=== PATIENT | male | born 2000 | race Caucasian/White ===

== ENCOUNTER 2023-04-03 21:33 | Emergency (ER) | payer SELFPAY ==
[2023-04-03 21:55] VITALS: BP 114/67; PULSE 82; RESP 16; TEMP 36.7; O2SAT 98; BMI 20.5
[2023-04-04] VITALS: PULSE 80; RESP 16; TEMP 36.1; O2SAT 98
--- NOTE | 2023-04-04 00:18 | ED_ITS ---
HPI - General Adult General Chief complaint: Skin/Abscess/Foreign Body Stated complaint: Almost passed out unpacking wound Time Seen by Provider: 04/04/23 00:15 Source: patient, family, RN notes reviewed and old records reviewed Mode of arrival: ambulatory Limitations: no limitations History of Present Illness HPI narrative: 23-year-old male who comes in today with near syncopal episode while changing the packing in his hand wound. Review of chart shows the patient had incision and drainage of a hand abscess on March 30. Patient was to remove the packing yesterday but became lightheaded when doing so and so waited till today, tried to do it again and became lightheaded so came to the emergency department. He is otherwise feeling well, he is on Bactrim Related Data Previous Rx's Medication Instructions Recorded oxycodone 5 mg tablet 5 mg PO Q4H PRN Pain #14 tabs 03/30/23 sulfamethoxazole 800 1 tab PO BID #14 tabs 04/01/23 mg-trimethoprim 160 mg tablet (Bactrim DS) Allergies Allergy/AdvReac Type Severity Reaction Status Date / Time amoxicillin Allergy hives Verified 03/29/23 04:34 PFSH PFS Social History Narrative: Works in [employer], lived in [place], [place], and [place] as a child. Girlfriend Tari would be medical decision maker if needed. Smoker, 1 beer/day. No history of ETOH withdrawal. No IVDU. Full Code. Highest level of school completed/degree received: high school graduate Smoking Status: Current every day smoker What tobacco products do you use: cigarettes Second hand tobacco smoke exposure: Yes How often do you have a drink containing alcohol: 4 or more times a week Alcohol type: beer How many standard drinks containing alcohol do you have on a typical day: 1 or 2 How often do you have six or more drinks on one occasion: Monthly AUDIT-C Alcohol total score: 6 Non-prescribed substance use: denies use Caffeine: Yes service: No Exam Narrative: Exam Narrative: General: well nourished , NAD Head: Atraumatic and normocephalic ENT: External ears and external nose are normal Eyes: Conjunctiva clear, pupils are equal reactive, external ocular motions are intact Neck: Full spontaneous range of motion of the neck Lungs: No respiratory distress Musculoskeletal: No tenderness or deformity Neurologic: No gross focal neurologic deficits Skin: Packing in the right thenar eminence, minimal erythema. Psych: Mood and affect are appropriate Const: Vital Signs, click to edit/add: Vital Signs - 24 hr 04/03/23 21:55 Temperature 98.0 F Pulse Rate [Left P ulse Oximeter] 82 Respiratory Rate 16 Blood Pressure [Le ft Upper Arm] 114/67 Pulse Oximetry 98 Oxygen Delivery Me thod Room Air Course Course Hospital Course: Patient seen examined, prior hospital in patient notes reviewed. Patient presents with near syncopal episodes when trying to change his packing is right- hand wound. This was removed. Patient tolerated this well and did not pass out. There is a small amount of bleeding after packing is removed. Patient reports that he did not go home with supplies to repack the wound and so this will not be repacked. Discharge with oxycodone use for 24 hours if needed for pain. Vital Signs Vital signs: Initial Vital Signs Temperature 98.0 F 04/03/23 21:55 Temperature Source Temporal Artery Scan 04/03/23 21:55 Pulse Rate 82 04/03/23 21:55 Pulse Rhythm Regular 04/03/23 21:55 Respiratory Rate 16 04/03/23 21:55 Blood Pressure 114/67 04/03/23 21:55 Blood Pressure Mean 82 04/03/23 21:55 Blood Pressure Position Sitting 04/03/23 21:55 Pulse Oximetry 98 04/03/23 21:55 Oxygen Delivery Method Room Air 04/03/23 21:55 Vital Signs Temperature 98.0 F 04/03/23 21:55 Pulse Rate 82 04/03/23 21:55 Respiratory Rate 16 04/03/23 21:55 Blood Pressure 114/67 04/03/23 21:55 Pulse Oximetry 98 04/03/23 21:55 Oxygen Delivery Method Room Air 04/03/23 21:55 Temperature 98.0 F 04/03/23 21:55 Pulse Rate 82 04/03/23 21:55 Respiratory Rate 16 04/03/23 21:55 Blood Pressure 114/67 04/03/23 21:55 Pulse Oximetry 98 04/03/23 21:55 Oxygen Delivery Method Room Air 04/03/23 21:55 Discharge Plan Discharge Prescriptions: No Action oxycodone 5 mg Tablet 5 mg PO Q4H PRN (Reason: Pain) Qty: 14 0RF sulfamethoxazole-trimethoprim [Bactrim DS] 800-160 mg tablet 1 tab PO BID Qty: 14 0RF Follow Up/Referrals: Provider,Not a Local [Primary Care Provider] -
--- NOTE | 2023-04-04 01:01 | ED.NURSE ---
palm cleaned, dressed with kerlix and yadira bandage, per MD instructions.
== END 2023-04-04 00:59 | disposition home or self-care (01) ==
PROVIDERS: Emergency Provider Family Medicine
DX: Z48.00 Encounter for change or removal of nonsurgical wound dressing (principal)
CPT/HCPCS: 99283; 99284

== ENCOUNTER 2023-10-11 09:00 | Outpatient (CLI) | payer OTHER, SELFPAY | END 2023-10-11 09:01 | disposition home or self-care (01) | PROVIDERS: Visit Provider Family Medicine | DX: R53.83 Other fatigue (principal) | CPT/HCPCS: 80053; 84443 ==

== ENCOUNTER 2024-08-16 00:26 | Emergency (ER) | payer OTHER, SELFPAY ==
[2024-08-16 00:31] VITALS: BP 122/79; PULSE 122; RESP 18; TEMP 36.7; O2SAT 99; BMI 21.4
--- NOTE | 2024-08-16 00:43 | ED.GENADULT ---
HPI - General Adult General Chief complaint: Extremity Pain/Injury, Upper Stated complaint: L middle finger injury Time Seen by Provider: 08/16/24 00:38 History of Present Illness HPI narrative: Patient is a 24-year-old gentleman who has an exopthosis of the 3rd digit of left hand in the PIP joint. There appears to be a fracture present. Patient was seen in urgent care several days ago and is waiting consultation with Orthopedics. He states the pain is not bearable with Tylenol and Motrin. He has pain and swelling at the PIP joint 3rd digit left hand. He has tried clark tape the finger but is just too tender to stay clark-taped. Patient's look for pain control as he has upcoming orthopedic appointment. No other concerns are noted. Related Data Home Medications ?Medication ?Instructions ?Recorded ?Confirmed No Known Home Medications 08/13/24 08/13/24 Allergies Allergy/AdvReac Type Severity Reaction Status Date / Time amoxicillin Allergy Unknown hives Verified 08/16/24 00:34 Review of Systems Status of ROS: Reports: 10 or more systems reviewed and unremarkable except as noted in History and below PFSH [facility] Medical History Laceration of left index finger without foreign body without damage to nail ?S61.211A - Laceration without foreign body of left index finger without damage to nail, initial encounter (ICD-10) Surgical History History of hand surgery (03/30/23) ?Z98.890 - Other specified postprocedural states (ICD-10) Social History Narrative: Works in [employer], lived in [place], [place], and [place] as a child. Girlfriend Tari would be medical decision maker if needed. Smoker, 1 beer/day. No history of ETOH withdrawal. No IVDU. Full Code. Highest level of school completed/degree received: high school graduate Smoking Status: Current every day smoker What tobacco products do you use: cigarettes Do you use any of these nicotine containing products: E-Cigarettes and Vaping Products Smokeless tobacco user: chewing tobacco Second hand tobacco smoke exposure: Yes How often do you have a drink containing alcohol: 4 or more times a week Alcohol type: beer How many standard drinks containing alcohol do you have on a typical day: 1 or 2 How often do you have six or more drinks on one occasion: Monthly AUDIT-C Alcohol total score: 6 Non-prescribed substance use: denies use Caffeine: Yes Little interest or pleasure in doing things: more than half the days Feeling down, depressed, or hopeless: not at all service: No Exam Narrative: Exam Narrative: EXAM GENERAL: Patient appears comfortable and well. EYES: No scleral icterus. LYMPH: No supraclavicular or cervical lymphadenopathy. SKIN: Visible skin seen during exam normal or with benign process only. EXT: No dependent lower extremity pedal edema. Of pain and swelling PIP joint 3rd digit left hand. HEART: Regular rate and rhythm with no murmurs, rubs, or gallops. LUNGS: Clear to auscultation bilaterally with no crackles or wheezes. ABD: Soft, non tender, non distended. PSYCH: Good eye contact, speech is not pressured. Const: Vital Signs, click to edit/add: Vital Signs - 24 hr 08/16/24 00:31 Temperature 98.0 F Pulse Rate [Right Pulse Oximeter] 122 H Respiratory Rate 18 Blood Pressure [Ri ght Upper Arm] 122/79 Pulse Oximetry 99 Oxygen Delivery Me thod Room Air Course Course ED Course: Patient seen and examined. Vital Signs Vital signs: Initial Vital Signs Temperature 98.0 F 08/16/24 00:31 Temperature Source Temporal Artery Scan 08/16/24 00:31 Pulse Rate 122 H 08/16/24 00:31 Pulse Rhythm Regular 08/16/24 00:31 Pulse Strength 3+ Normal 08/16/24 00:31 Respiratory Rate 18 08/16/24 00:31 Blood Pressure 122/79 08/16/24 00:31 Blood Pressure Mean 93 08/16/24 00:31 Blood Pressure Position Sitting 08/16/24 00:31 Pulse Oximetry 99 08/16/24 00:31 Oxygen Delivery Method Room Air 08/16/24 00:31 Vital Signs Temperature 98.0 F 08/16/24 00:31 Pulse Rate 122 H 08/16/24 00:31 Respiratory Rate 18 08/16/24 00:31 Blood Pressure 122/79 08/16/24 00:31 Pulse Oximetry 99 08/16/24 00:31 Oxygen Delivery Method Room Air 08/16/24 00:31 Temperature 98.0 F 08/16/24 00:31 Pulse Rate 122 H 08/16/24 00:31 Respiratory Rate 18 08/16/24 00:31 Blood Pressure 122/79 08/16/24 00:31 Pulse Oximetry 99 08/16/24 00:31 Oxygen Delivery Method Room Air 08/16/24 00:31 Medical Decision Making MDM Narrative Medical decision making narrative: Patient has acute on chronic issue with the left 3rd upper extremity digit. I did review his previous workup and I do think is reasonable to give him some increased pain control as his Orthopedics coming up in 3 days. I did a limited number of Ephraim 1 every 12 hours as needed. Ice immobilization and follow-up with orthopedics. Discharge Plan Discharge Clinical Impression: Finger pain Patient Disposition: Home, Self-Care Condition: Stable Instructions: Hand Fracture (DC) Additional Instructions: Pain control as discussed Ice Rest Follow-up with orthopedics as discussed. Activity Level: No Restrictions Discharge Diet: Regular Prescriptions: No Action No Known Home Medications Follow Up/Referrals: Provider,Not a Local [Primary Care Provider] - Stand Alone Forms: [employer] Info Instructions
== END 2024-08-16 01:06 | disposition home or self-care (01) ==
LOC: ED 00:53
PROVIDERS: Emergency Provider Internal Medicine
DX: M79.645 Pain in left finger(s) (principal)
CPT/HCPCS: 99283